=== PATIENT | male | born 1990 | race Caucasian/White ===

== ENCOUNTER 2022-03-23 21:47 | Inpatient (IN) | payer OTHER ==
[2022-03-23] MEDS ORDERED: IBUPROFEN 400 MG TABLET (FP) PO PRN (22:05)
[2022-03-23] MEDS ORDERED: NICOTINE 10 MG CARTRIDGE (INHALER) IH PRN (22:05)
[2022-03-23] MEDS ORDERED: P-EPHED 60MG/TRIPROLIDI 2.5MG TABLET PO PRN (22:05)
[2022-03-23] MEDS ORDERED: guaiFENesin 200 MG/10 ML 10 ML UNIT-DOSE CUPS PO PRN (22:05)
[2022-03-23] MEDS ORDERED: ACETAMINOPHEN 325 MG TABLET (FP) PO PRN ×2 (22:05)
[2022-03-23] MEDS ORDERED: MAGNESIUM HYDROX 2400MG/30ML ORAL SUSPENSION 30 ML CUP PO PRN (22:05)
[2022-03-23] MEDS ORDERED: ONDANSETRON *ODT* 4 MG TABLET SL PRN (22:05)
[2022-03-23] MEDS ORDERED: MAGNESIUM CITRATE 300 ML BOTTLE PO PRN (22:05)
[2022-03-23] MEDS ORDERED: BENZOCAINE/MENTHOL (CHLORASEPTIC ) LOZENGE MM PRN (22:05)
[2022-03-23] MEDS ORDERED: LOPERAMIDE HCL 2 MG CAPSULE PO PRN (22:05)
[2022-03-23] MEDS ORDERED: MAG HYDROX/AL HYDROX/SIMETH 30 ML UNIT-DOSE CUP PO PRN (22:05)
[2022-03-23] MEDS ORDERED: BISMUTH SUBSALICYLATE 524 MG/30 ML PO PRN (22:05)
[2022-03-23] MEDS ORDERED: DICYCLOMINE HCL 10 MG CAPSULE PO PRN (22:05)
[2022-03-23] MEDS ORDERED: NALOXONE HCL 0.4 MG/ML VIAL IM PRN (22:05)
[2022-03-23 22:08] VITALS: BMI 21.4
[2022-03-24] MEDS: hydrOXYzine PAMOATE 25 MG CAPSULE (FP) PO SCH ×5 (05:40→23:07)
[2022-03-24] MEDS ORDERED: methaDONE HCL 10 MG TABLET (FOR DETOX USE ONLY) PO ONE (09:30)
[2022-03-24] MEDS ORDERED: TRIMETHOBENZAMIDE HCL 200MG/2ML INJ IM ONE (09:30)
[2022-03-24] MEDS: NICOTINE 14 MG/24 HOURS TOPICAL PATCH TD SCH (10:16)
[2022-03-24] MEDS: METHOCARBAMOL 500 MG TABLET PO PRN ×2 (10:16→19:46)
[2022-03-24] MEDS: PRENATAL VITAMINS W/ FOLIC ACID TABLET (FP) PO SCH (10:16)
[2022-03-24 10:55] LABS: HEMATOCRIT 44.1 % (35.4-49); HEMOGLOBIN 14.9 GM/dL (11.7-16.9); MCH 31.4 pg (25.7-33.7); MCHC 33.8 g/dl (32.0-35.9); MEAN CELL VOLUME 92.7 fl (80-96); MEAN PLT VOLUME 9.4 fl (7.5-11.1); PLATELET COUNT 272 10^3/uL (134-434); RBC 4.75 M/mm3 (4.00-5.60); RDW 13.5 % (11.9-15.9); WHITE BLOOD COUNT 7.5 K/mm3 (4.0-10.0)
[2022-03-24 11:06] LABS: CALCIUM 9.2 mg/dL (8.5-10.1)
[2022-03-24 11:07] LABS: ALBUMIN 3.8 g/dl (3.4-5.0); BLOOD UREA NITROGEN 15.6 mg/dL (7-18)
[2022-03-24 11:10] LABS: CREATININE 0.8 mg/dL (0.55-1.3)
[2022-03-24 11:11] LABS: BILIRUBIN,TOTAL 0.3 mg/dL (0.2-1); TOT PROT 6.9 g/dl (6.4-8.2)
[2022-03-24] MEDS: ASPIRIN 81 MG CHEWABLE TABLETS PO SCH (17:36)
[2022-03-24] MEDS: cloNIDine HCL 0.1 MG TABLET PO PRN ×2 (19:46→23:08)
[2022-03-24] MEDS ORDERED: MELATONIN 5 MG TABLETS PO SCH (22:00)
[2022-03-24] MEDS ORDERED: THIAMINE HCL 100 MG TABLET (FP) PO SCH (22:00)
[2022-03-25] MEDS: hydrOXYzine PAMOATE 25 MG CAPSULE (FP) PO SCH ×2 (06:14→10:08)
[2022-03-25] MEDS ORDERED: methaDONE HCL 10 MG TABLET (FOR DETOX USE ONLY) ONE (09:15)
[2022-03-25 09:36] VITALS: BP 151/90; PULSE 66; TEMP 96.9
[2022-03-25] MEDS: ASPIRIN 81 MG CHEWABLE TABLETS PO SCH (10:08)
[2022-03-25] MEDS: PRENATAL VITAMINS W/ FOLIC ACID TABLET (FP) PO SCH (10:09)
[2022-03-25] MEDS: NICOTINE 14 MG/24 HOURS TOPICAL PATCH TD SCH (10:09)
[2022-03-26] MEDS ORDERED: methaDONE HCL 10 MG TABLET (FOR DETOX USE ONLY) PO ONE (10:00)
[2022-03-28] MEDS ORDERED: methaDONE HCL 10 MG TABLET (FOR DETOX USE ONLY) PO ONE (10:00)
== END 2022-03-25 12:16 | disposition left against medical advice (07) | DRG 770 ==
LOC: YASAS 21:47 → Y6N 22:18
PROVIDERS: ADMIT Allergy & Immunology; ATTEND Surgery
PROC: HZ2ZZZZ Detoxification Services for Substance Abuse Treatment (ICD-10-PCS; principal; 2022-03-23)
DX: F11.23 Opioid dependence with withdrawal (principal); F14.20 Cocaine dependence, uncomplicated; F13.20 Sedative, hypnotic or anxiolytic dependence, uncomplicated; F16.10 Hallucinogen abuse, uncomplicated; F12.20 Cannabis dependence, uncomplicated; F17.213 Nicotine dependence, cigarettes, with withdrawal; F19.280 Other psychoactive substance dependence with psychoactive substance-induced anxiety disorder; F19.24 Other psychoactive substance dependence with psychoactive substance-induced mood disorder; F42.4 Excoriation (skin-picking) disorder; J45.20 Mild intermittent asthma, uncomplicated; M54.50 Low back pain, unspecified; Z28.310 Unvaccinated for COVID-19; Z56.0 Unemployment, unspecified; Z59.02 Unsheltered homelessness
CPT/HCPCS: 36415; 80053; 85027; 86780; 93005; 93010; C9803-CS; J0735; Q0162; U0003; U0005

== ENCOUNTER 2022-04-26 08:58 | Inpatient (IN) | payer OTHER ==
[2022-04-26 09:50] VITALS: BMI 23.0
[2022-04-26] MEDS ORDERED: MAGNESIUM HYDROX 2400MG/30ML ORAL SUSPENSION 30 ML CUP PO PRN (10:18)
[2022-04-26] MEDS ORDERED: LOPERAMIDE HCL 2 MG CAPSULE PO PRN (10:18)
[2022-04-26] MEDS ORDERED: IBUPROFEN 400 MG TABLET (FP) PO PRN (10:18)
[2022-04-26] MEDS ORDERED: ACETAMINOPHEN 325 MG TABLET (FP) PO PRN (10:18)
[2022-04-26] MEDS ORDERED: MAGNESIUM CITRATE 300 ML BOTTLE PO PRN (10:18)
[2022-04-26] MEDS ORDERED: MAG HYDROX/AL HYDROX/SIMETH 30 ML UNIT-DOSE CUP PO PRN (10:18)
[2022-04-26] MEDS ORDERED: guaiFENesin 200 MG/10 ML 10 ML UNIT-DOSE CUPS PO PRN (10:18)
[2022-04-26] MEDS ORDERED: P-EPHED 60MG/TRIPROLIDI 2.5MG TABLET PO PRN (10:18)
[2022-04-26] MEDS ORDERED: NICOTINE 10 MG CARTRIDGE (INHALER) IH PRN (10:18)
[2022-04-26] MEDS ORDERED: NALOXONE HCL (KLOXXADO) 8 MG SPRAY NS PRN (10:21)
[2022-04-26 14:33] LABS: HEMATOCRIT 40.9 % (35.4-49); HEMOGLOBIN 13.7 GM/dL (11.7-16.9); MCH 31.3 pg (25.7-33.7); MCHC 33.4 g/dl (32.0-35.9); MEAN CELL VOLUME 93.8 fl (80-96); MEAN PLT VOLUME 10.1 fl (7.5-11.1); PLATELET COUNT 205 10^3/uL (134-434); RBC 4.36 M/mm3 (4.00-5.60); WHITE BLOOD COUNT 7.1 K/mm3 (4.0-10.0)
[2022-04-26 14:38] LABS: ALBUMIN 3.8 g/dl (3.4-5.0); BLOOD UREA NITROGEN 12.1 mg/dL (7-18)
[2022-04-26 14:42] LABS: TOT PROT 6.7 g/dl (6.4-8.2)
[2022-04-26 14:43] LABS: BILIRUBIN,TOTAL 0.3 mg/dL (0.2-1)
[2022-04-26 15:01] LABS: SYPHILIS W/ RPR CONF NON-REACTIVE (NONREACTIVE)
[2022-04-26] MEDS ORDERED: TUBERCULIN PPD 5 TU/0.1ML VIAL ID ONE (17:21)
[2022-04-26] MEDS: PRENATAL VITAMINS W/ FOLIC ACID TABLET (FP) PO SCH (17:42)
[2022-04-26] MEDS: NICOTINE 7 MG/24 HOURS TOPICAL PATCH TD SCH (17:42)
[2022-04-26] MEDS: hydrOXYzine PAMOATE 25 MG CAPSULE (FP) PO SCH ×3 (17:47→21:16)
[2022-04-26] MEDS ORDERED: MELATONIN 5 MG TABLETS PO SCH (22:00)
[2022-04-26] MEDS ORDERED: THIAMINE HCL 100 MG TABLET (FP) PO SCH (22:00)
[2022-04-26 23:02] LABS: EPI CELLS 7 /uL (0-25.1); HYALINE CASTS 3 /uL (0-3.1); URINE APPEARANCE TURBID; URINE BACTERIA 11 /uL (0-1359); URINE BILIRUBIN NEGATIVE (NEGATIVE); URINE COLOR YELLOW; URINE GLUCOSE (UA) NEGATIVE (NEGATIVE); URINE KETONE TRACE (NEGATIVE); URINE LEUK ESTERASE TRACE (NEGATIVE); URINE NITRITE NEGATIVE (NEGATIVE); URINE PROTEIN NEGATIVE (NEGATIVE); URINE RBC 15 /uL (0-23.9); URINE WBC 15 /uL (0-25.8)
[2022-04-27] MEDS ORDERED: methaDONE HCL 40 MG DISPERSABLE TABLET PO SCH (06:00)
[2022-04-27 06:24] VITALS: BP 136/90; PULSE 50; TEMP 98
[2022-04-27] MEDS: hydrOXYzine PAMOATE 25 MG CAPSULE (FP) PO SCH ×3 (06:53→14:51)
[2022-04-27] MEDS: PRENATAL VITAMINS W/ FOLIC ACID TABLET (FP) PO SCH (10:04)
[2022-04-27] MEDS: NICOTINE 7 MG/24 HOURS TOPICAL PATCH TD SCH (10:04)
== END 2022-04-27 17:25 | disposition left against medical advice (07) | DRG 770 ==
LOC: YASAS 08:58 → Y3E 16:24
PROVIDERS: ADMIT Allergy & Immunology; ATTEND Psychiatry & Neurology Pain Medicine
PROC: HZ42ZZZ Group Counseling for Substance Abuse Treatment, Cognitive-Behavioral (ICD-10-PCS; principal; 2022-04-26)
DX: F13.20 Sedative, hypnotic or anxiolytic dependence, uncomplicated (principal); F11.20 Opioid dependence, uncomplicated; F14.20 Cocaine dependence, uncomplicated; F12.20 Cannabis dependence, uncomplicated; F16.10 Hallucinogen abuse, uncomplicated; F17.210 Nicotine dependence, cigarettes, uncomplicated; F19.280 Other psychoactive substance dependence with psychoactive substance-induced anxiety disorder; J45.20 Mild intermittent asthma, uncomplicated; M54.59 Other low back pain; G89.29 Other chronic pain; Z28.310 Unvaccinated for COVID-19; Z86.69 Personal history of other diseases of the nervous system and sense organs; Z56.0 Unemployment, unspecified; Z59.00 Homelessness unspecified
CPT/HCPCS: 36415; 80053; 81003; 85027; 86780; 86803; C9803-CS; U0003; U0005

== ENCOUNTER 2022-07-24 20:03 | Inpatient (IN) | payer OTHER ==
[2022-07-24 20:36] VITALS: BMI 20.8
[2022-07-24] MEDS ORDERED: MELATONIN 5 MG TABLETS PO SCH (22:00)
[2022-07-24] MEDS ORDERED: LOPERAMIDE HCL 2 MG CAPSULE PO PRN ×2 (22:10→22:33)
[2022-07-24] MEDS ORDERED: MAGNESIUM HYDROX 2400MG/30ML ORAL SUSPENSION 30 ML CUP PO PRN ×2 (22:10→22:33)
[2022-07-24] MEDS ORDERED: MAG HYDROX/AL HYDROX/SIMETH 30 ML UNIT-DOSE CUP PO PRN ×2 (22:10→22:33)
[2022-07-24] MEDS ORDERED: P-EPHED 60MG/TRIPROLIDI 2.5MG TABLET PO PRN (22:10)
[2022-07-24] MEDS ORDERED: MAGNESIUM CITRATE 300 ML BOTTLE PO PRN ×2 (22:10→22:33)
[2022-07-24] MEDS ORDERED: NICOTINE POLACRILEX 4 MG GUM BUC PRN ×2 (22:10→22:33)
[2022-07-24] MEDS ORDERED: ACETAMINOPHEN 325 MG TABLET (FP) PO PRN ×3 (22:10→22:33)
[2022-07-24] MEDS ORDERED: NICOTINE 10 MG CARTRIDGE (INHALER) IH PRN ×2 (22:10→22:33)
[2022-07-24] MEDS ORDERED: IBUPROFEN 400 MG TABLET (FP) PO PRN ×2 (22:10→22:33)
[2022-07-24] MEDS ORDERED: NALOXONE HCL (KLOXXADO) 8 MG SPRAY NS PRN ×2 (22:10→22:33)
[2022-07-24] MEDS ORDERED: guaiFENesin 200 MG/10 ML 10 ML UNIT-DOSE CUPS PO PRN (22:10)
[2022-07-24] MEDS ORDERED: ONDANSETRON *ODT* 4 MG TABLET SL PRN (22:33)
[2022-07-24] MEDS ORDERED: BENZOCAINE/MENTHOL (CHLORASEPTIC ) LOZENGE MM PRN (22:33)
[2022-07-24] MEDS ORDERED: IBUPROFEN 600 MG TABLET (FP) PO PRN (22:33)
[2022-07-24] MEDS ORDERED: DICYCLOMINE HCL 10 MG CAPSULE PO PRN (22:33)
[2022-07-24] MEDS ORDERED: BISMUTH SUBSALICYLATE 524 MG/30 ML PO PRN (22:33)
[2022-07-25] MEDS ORDERED: hydrOXYzine PAMOATE 25 MG CAPSULE (FP) PO SCH (06:00)
[2022-07-25] MEDS: hydrOXYzine PAMOATE 25 MG CAPSULE (FP) PO SCH ×5 (06:02→22:24)
[2022-07-25] MEDS ORDERED: methaDONE HCL 10 MG TABLET PO ONE (09:50)
[2022-07-25] MEDS ORDERED: methaDONE 80 MG, methaDONE 10 MG PO ONE (10:00)
[2022-07-25] MEDS ORDERED: PRENATAL VITAMINS W/ FOLIC ACID TABLET (FP) PO SCH (10:00)
[2022-07-25] MEDS ORDERED: NICOTINE 7 MG/24 HOURS TOPICAL PATCH TD SCH (10:00)
[2022-07-25] MEDS: METHOCARBAMOL 500 MG TABLET PO PRN (10:14)
[2022-07-25] MEDS: PRENATAL VITAMINS W/ FOLIC ACID TABLET (FP) PO SCH (10:14)
[2022-07-25] MEDS ORDERED: FLU VACC QS2022-23(6MOS UP)/PF 60 MCG/0.5 ML SYRINGE IM ONE (12:00)
[2022-07-25 13:28] LABS: HEMATOCRIT 40.9 % (35.4-49); HEMOGLOBIN 13.9 GM/dL (11.7-16.9); MCH 32.1 pg (25.7-33.7); MCHC 34.1 g/dl (32.0-35.9); MEAN CELL VOLUME 93.9 fl (80-96); MEAN PLT VOLUME 9.4 fl (7.5-11.1); PLATELET COUNT 241 10^3/uL (134-434); RBC 4.35 M/mm3 (4.00-5.60); RDW 12.5 % (11.9-15.9)
[2022-07-25 13:31] LABS: ALBUMIN 3.5 g/dl (3.4-5.0); CALCIUM 8.6 mg/dL (8.5-10.1)
[2022-07-25 13:34] LABS: CREATININE 0.9 mg/dL (0.55-1.3)
[2022-07-25 13:35] LABS: BILIRUBIN,TOTAL 0.4 mg/dL (0.2-1); TOT PROT 6.4 g/dl (6.4-8.2)
[2022-07-25] MEDS ORDERED: MELATONIN 5 MG TABLETS PO SCH (22:00)
[2022-07-25] MEDS ORDERED: THIAMINE HCL 100 MG TABLET (FP) PO SCH ×2 (22:00)
[2022-07-26] MEDS: hydrOXYzine PAMOATE 25 MG CAPSULE (FP) PO SCH ×4 (05:08→17:45)
[2022-07-26] MEDS ORDERED: methaDONE HCL 10 MG TABLET PO SCH (06:00)
[2022-07-26] MEDS: PRENATAL VITAMINS W/ FOLIC ACID TABLET (FP) PO SCH (10:24)
[2022-07-26] MEDS: METHOCARBAMOL 500 MG TABLET PO PRN (10:26)
[2022-07-26 17:09] VITALS: BP 97/60; PULSE 60; RESP 18; TEMP 97.8
== END 2022-07-26 17:55 | disposition other institution (70) | DRG 773 ==
LOC: YASAS 20:03 → Y6N 22:38 → UNDOADMIN 22:38
PROVIDERS: ADMIT Allergy & Immunology; ATTEND Surgery
PROC: HZ2ZZZZ Detoxification Services for Substance Abuse Treatment (ICD-10-PCS; principal; 2022-07-24)
DX: F13.230 Sedative, hypnotic or anxiolytic dependence with withdrawal, uncomplicated (principal); F10.230 Alcohol dependence with withdrawal, uncomplicated; F11.20 Opioid dependence, uncomplicated; F14.20 Cocaine dependence, uncomplicated; F12.20 Cannabis dependence, uncomplicated; F17.210 Nicotine dependence, cigarettes, uncomplicated; J45.909 Unspecified asthma, uncomplicated; M54.50 Low back pain, unspecified; G89.29 Other chronic pain; Z28.310 Unvaccinated for COVID-19; Z28.9 Immunization not carried out for unspecified reason
CPT/HCPCS: 36415; 80053; 85027; 86780; 87811

== ENCOUNTER 2023-09-01 21:44 | Inpatient (IN) | payer OTHER ==
[2023-09-02 01:22] VITALS: BMI 25.8
[2023-09-02] MEDS ORDERED: POLYETHYLENE GLYCOL (HEALTHYLAX) 3350 17 GM PACKET PO PRN (02:19)
[2023-09-02] MEDS ORDERED: DICYCLOMINE HCL 10 MG CAPSULE PO PRN (02:19)
[2023-09-02] MEDS ORDERED: BENZOCAINE/MENTHOL (CHLORASEPTIC ) LOZENGE MM PRN (02:19)
[2023-09-02] MEDS ORDERED: NALOXONE HCL (KLOXXADO) 8 MG SPRAY NS PRN (02:19)
[2023-09-02] MEDS ORDERED: NALOXONE HCL 0.4 MG/ML VIAL IM PRN (02:19)
[2023-09-02] MEDS ORDERED: MAG HYDROX/AL HYDROX/SIMETH 30 ML UNIT-DOSE CUP PO PRN (02:19)
[2023-09-02] MEDS ORDERED: BISMUTH SUBSALICYLATE 524 MG/30 ML PO PRN (02:19)
[2023-09-02] MEDS ORDERED: guaiFENesin 600 MG TABLET.ER (FP) PO PRN (02:19)
[2023-09-02] MEDS ORDERED: MAGNESIUM HYDROX 2400MG/30ML ORAL SUSPENSION 30 ML CUP PO PRN (02:19)
[2023-09-02] MEDS ORDERED: LOPERAMIDE HCL 2 MG CAPSULE PO PRN (02:19)
[2023-09-02] MEDS ORDERED: METHOCARBAMOL 500 MG TABLET PO PRN (02:19)
[2023-09-02] MEDS ORDERED: IBUPROFEN 400 MG TABLET (FP) PO PRN (02:19)
[2023-09-02] MEDS ORDERED: NICOTINE POLACRILEX 2 MG GUM BUC PRN (02:19)
[2023-09-02] MEDS ORDERED: BENZONATATE 200 MG CAPSULE PO PRN (02:19)
[2023-09-02] MEDS ORDERED: BUPRENORPHINE HCL 150 MCG, BUPRENORPHINE HCL 75 MCG BC PRN (06:38)
[2023-09-02] MEDS ORDERED: BUPRENORPHINE HCL 150 MCG, BUPRENORPHINE HCL 75 MCG BC ONE (07:15)
[2023-09-02] MEDS ORDERED: cloNIDine HCL 0.1 MG TABLET PO ONE (07:30)
[2023-09-02] MEDS ORDERED: NICOTINE 14 MG/24 HOURS TOPICAL PATCH TD SCH (10:00)
[2023-09-02] MEDS: NICOTINE 21 MG/24 HOURS TOPICAL PATCH TD SCH (10:11)
[2023-09-02] MEDS: PRENATAL VITAMINS W/ FOLIC ACID TABLET (FP) PO SCH (10:11)
[2023-09-02] MEDS ORDERED: cloNIDine HCL 0.1 MG TABLET PO PRN (10:38)
[2023-09-02] MEDS: MELATONIN 5 MG TABLETS PO SCH (22:12)
[2023-09-02] MEDS: THIAMINE HCL 100 MG TABLET (FP) PO SCH (22:12)
[2023-09-02] MEDS: ONDANSETRON *ODT* 4 MG TABLET SL PRN (22:14)
[2023-09-02] MEDS: diazePAM 5 MG TABLET PO PRN (22:14)
[2023-09-02] MEDS: IBUPROFEN 600 MG TABLET (FP) PO PRN (23:50)
[2023-09-03] MEDS ORDERED: BUPRENORPHINE HCL 150 MCG, BUPRENORPHINE HCL 75 MCG BC PRN
[2023-09-03] MEDS: BUPRENORPHINE HCL 150 MCG, BUPRENORPHINE HCL 75 MCG BC SCH ×2 (05:31→17:10)
[2023-09-03] MEDS: ACETAMINOPHEN 325 MG TABLET (FP) PO PRN ×2 (05:33→22:49)
[2023-09-03] MEDS: ONDANSETRON *ODT* 4 MG TABLET SL PRN ×2 (05:33→21:06)
[2023-09-03] MEDS: diazePAM 5 MG TABLET PO PRN ×3 (05:33→22:52)
[2023-09-03 10:19] LABS: CALCIUM 8.3 mg/dL (8.5-10.1)
[2023-09-03 10:20] LABS: ALBUMIN 3.6 g/dl (3.4-5.0); BLOOD UREA NITROGEN 16.3 mg/dL (7-18)
[2023-09-03 10:23] LABS: CREATININE 0.9 mg/dL (0.55-1.3)
[2023-09-03] MEDS: hydrOXYzine PAMOATE 25 MG CAPSULE (FP) PO PRN ×2 (10:23→22:49)
[2023-09-03] MEDS: PRENATAL VITAMINS W/ FOLIC ACID TABLET (FP) PO SCH (10:23)
[2023-09-03 10:24] LABS: BILIRUBIN,TOTAL 0.7 mg/dL (0.2-1); TOT PROT 6.6 g/dl (6.4-8.2)
[2023-09-03] MEDS: NICOTINE 21 MG/24 HOURS TOPICAL PATCH TD SCH (10:24)
[2023-09-03 10:40] LABS: HEMATOCRIT 40.2 % (35.4-49); HEMOGLOBIN 13.7 GM/dL (11.7-16.9); MCHC 34.1 g/dl (32.0-35.9); MEAN PLT VOLUME 10.7 fl (7.5-11.1); PLATELET COUNT 274 10^3/uL (134-434); RBC 4.42 M/mm3 (4.00-5.60); RDW 13.2 % (11.9-15.9); WHITE BLOOD COUNT 6.5 K/mm3 (4.0-10.0)
[2023-09-03] MEDS ORDERED: BUPRENORPHINE HCL 150 MCG FILM BC ONE (17:04)
[2023-09-03] MEDS ORDERED: TRIMETHOBENZAMIDE HCL 200MG/2ML INJ IM ONE (21:12)
[2023-09-03] MEDS: MELATONIN 5 MG TABLETS PO SCH (22:49)
[2023-09-03] MEDS: THIAMINE HCL 100 MG TABLET (FP) PO SCH (22:51)
[2023-09-04] MEDS: IBUPROFEN 600 MG TABLET (FP) PO PRN (00:15)
[2023-09-04] MEDS: BUPRENORPHINE HCL 450 MCG FILM BC SCH ×2 (05:52→17:24)
[2023-09-04] MEDS: diazePAM 5 MG TABLET PO PRN ×3 (05:55→23:22)
[2023-09-04] MEDS: PRENATAL VITAMINS W/ FOLIC ACID TABLET (FP) PO SCH (10:16)
[2023-09-04] MEDS: NICOTINE 21 MG/24 HOURS TOPICAL PATCH TD SCH (10:16)
[2023-09-04] MEDS: hydrOXYzine PAMOATE 25 MG CAPSULE (FP) PO PRN (22:04)
[2023-09-04] MEDS: THIAMINE HCL 100 MG TABLET (FP) PO SCH (22:04)
[2023-09-04] MEDS: MELATONIN 5 MG TABLETS PO SCH (22:04)
[2023-09-05] MEDS: diazePAM 5 MG TABLET PO PRN ×3 (05:44→22:27)
[2023-09-05] MEDS ORDERED: BUPRENORPHINE/NALOXONE 4 MG/1 MG FILM PACKET SL SCH ×2 (06:00→18:00)
[2023-09-05] MEDS: NICOTINE 21 MG/24 HOURS TOPICAL PATCH TD SCH (10:03)
[2023-09-05] MEDS: PRENATAL VITAMINS W/ FOLIC ACID TABLET (FP) PO SCH (10:03)
[2023-09-05 12:05] LABS: SGOT/AST 53 U/L (15-37); SGPT/ALT 82 U/L (13-61)
[2023-09-05] MEDS: MELATONIN 5 MG TABLETS PO SCH (22:26)
[2023-09-05] MEDS: THIAMINE HCL 100 MG TABLET (FP) PO SCH (22:26)
[2023-09-05] MEDS: hydrOXYzine PAMOATE 25 MG CAPSULE (FP) PO PRN (22:27)
[2023-09-06] MEDS: diazePAM 5 MG TABLET PO PRN (05:58)
[2023-09-06] MEDS ORDERED: BUPRENORPHINE/NALOXONE 8 MG/2 MG FILM PACKET SL ONE (06:00)
[2023-09-06 09:42] VITALS: BP 114/74; PULSE 103; RESP 18; TEMP 97.7
[2023-09-06] MEDS: PRENATAL VITAMINS W/ FOLIC ACID TABLET (FP) PO SCH (10:11)
[2023-09-06] MEDS: NICOTINE 21 MG/24 HOURS TOPICAL PATCH TD SCH (10:12)
== END 2023-09-06 10:57 | disposition home or self-care (01) | DRG 773 ==
LOC: YASAS 21:44 → Y3N 09-02 05:54
PROVIDERS: ADMIT Allergy & Immunology; ATTEND Psychiatry & Neurology Pain Medicine
PROC: HZ2ZZZZ Detoxification Services for Substance Abuse Treatment (ICD-10-PCS; principal; 2023-09-02)
DX: F11.23 Opioid dependence with withdrawal (principal); F10.20 Alcohol dependence, uncomplicated; F14.20 Cocaine dependence, uncomplicated; F17.210 Nicotine dependence, cigarettes, uncomplicated; M54.50 Low back pain, unspecified; R74.01 Elevation of levels of liver transaminase levels; Z86.69 Personal history of other diseases of the nervous system and sense organs; Z28.310 Unvaccinated for COVID-19; Z28.9 Immunization not carried out for unspecified reason
CPT/HCPCS: 36415; 80053; 80307; 84450; 84460; 85027; 86780; 87635; 93005; 93010; Q0162